=== PATIENT | male | born 1990 | race Caucasian/White ===

== ENCOUNTER 2020-06-10 15:08 | Emergency (ER) | payer MEDICAID, SELFPAY ==
[~2020-06-10] VITALS: Ht 170.2 cm; Wt 99.8 kg
[2020-06-10 15:10] VITALS: BP 144/85; Ht 170.2 cm; Wt 99.8 kg
== END 2020-06-10 16:47 | disposition home or self-care (01) ==
LOC: ED 15:08
DX: U07.1 COVID-19 (principal)
CPT/HCPCS: U0003